=== PATIENT | female | born 1950 | race Hispanic/Latino ===

== ENCOUNTER 2020-12-30 18:45 | Observation (INO) | payer OTHER ==
[~2020-12-30] VITALS: Ht 162.6 cm; Wt 99.8 kg
[2020-12-30 18:52] VITALS: BP 153/76
[2020-12-30] MEDS ORDERED: 0.9%NACL 1000ML 1,000 ML IV ONE ×2 (19:30→21:00)
[2020-12-30 19:42] LABS: ABG OXYGEN SATURATION 70.6 % (95.0-99.0); BASE EXCESS,VENOUS BLOOD GAS -0.9 (-2.0-3.0); HCO3,VENOUS BLOOD GAS 25.4 (21.0-28.0); PCO2,VENOUS BLOOD GAS 48 (32-45); PH,VENOUS BLOOD GAS 7.343 (7.350-7.450)
[2020-12-30 19:46] LABS: BASOPHILS % (AUTO) 0.5 % (0.0-5.0); EOSINOPHILS % (AUTO) 2.4 % (0.0-8.0); HEMATOCRIT 33.2 % (36-48); LYMPHOCYTES % (AUTO) 15.6 % (21.0-51.0); MEAN CORPUSCULAR HEMOGLOBIN 29.7 pg (27.0-33.0); MEAN CORPUSCULAR HGB CONC 33.1 g/dL (32.0-36.0); MEAN CORPUSCULAR VOLUME 89.7 fL (79-99); MONOCYTES % (AUTO) 7.6 % (3.0-13.0); NEUTROPHILS % (AUTO) 73.5 % (40.0-77.0); PLATELET COUNT (AUTO) 199 K/uL (130-400); RED CELL DISTRIBUTION WIDTH 12.2 % (11.0-15.5); WHITE BLOOD COUNT (AUTO) 8.2 K/uL (4.8-10.8)
[2020-12-30 19:57] VITALS: BP 153/71
[2020-12-30 20:11] LABS: ALANINE AMINOTRANSFERASE 14 U/L (12-78); ALBUMIN 3.2 g/dL (3.5-5.0); ALCOHOL, BLOOD < 3 mg/dL (0-10); ASPARTATE AMINOTRANSFERASE 10 U/L (10-37); BILIRUBIN,TOTAL 0.4 mg/dL (0.2-1.0); CARBON DIOXIDE 25 mmol/L (21-32); CHLORIDE 99 mmol/L (101-111); CREATINE KINASE, TOTAL 73 U/L (21-232); CREATININE 2.1 mg/dL (0.5-1.5); GLOMERULAR FILTR. RATE CALC 25 mL/min (>60); POTASSIUM 4.3 mmol/L (3.5-5.1); SODIUM SERUM 134 mmol/L (136-145); TOTAL PROTEIN, SERUM 7.4 g/dL (6.0-8.3); UREA NITROGEN, BLOOD 34 mg/dL (7-18)
[2020-12-30 20:13] LABS: GLUCOSE,RANDOM 410 mg/dL (70-105)
[2020-12-30] MEDS ORDERED: INSULIN HUMULIN R 100 UNIT/ML 3ML SQ ONE (21:30)
[2020-12-30 21:40] VITALS: BP 158/73
[2020-12-30] MEDS ORDERED: ASPIRIN 325MG TAB PO STA (22:59)
[2020-12-30] MEDS ORDERED: ZOLPIDEM TARTRATE 5 MG TAB PO PRN (23:00)
[2020-12-30] MEDS ORDERED: GUAIFENESIN-DM 200/20 MG 10 ML PO PRN (23:00)
[2020-12-30] MEDS ORDERED: BENZONATATE 100 MG CAPSULE PO PRN (23:00)
[2020-12-30] MEDS ORDERED: MORPHINE 2 MG SYG IV PRN (23:00)
[2020-12-30] MEDS ORDERED: GLUCAGON 1MG KIT 1 MG ML IM PRN (23:00)
[2020-12-30] MEDS ORDERED: MAG/ALUM/SIMETH 30 ML UDCUP PO PRN (23:00)
[2020-12-30] MEDS ORDERED: DEXTROSE 50%-WATER 50 ML DISP.SYRIN IV PRN (23:00)
[2020-12-30] MEDS ORDERED: ONDANSETRON 4MG INJ IV PRN (23:00)
[2020-12-30] MEDS ORDERED: NITROGLYCERIN 0.4 MG SL TAB SL PRN (23:00)
[2020-12-30] MEDS ORDERED: LACTULOSE 20 GM/30 ML UDCUP PO PRN (23:00)
[2020-12-30] MEDS ORDERED: ACETAMINOPHEN 325 MG TAB PO PRN ×2 (23:00)
[2020-12-30 23:21] VITALS: BP 166/91
[2020-12-30] MEDS: 0.9%NACL 1000ML 1,000 ML IV SCH (23:27)
[2020-12-31 01:41] VITALS: BP 156/91
[2020-12-31 03:17] VITALS: BP 154/87
[2020-12-31] MEDS ORDERED: LORAZEPAM 2 MG/ML 1 ML VIAL IVP ONE (04:30)
[2020-12-31 04:48] VITALS: BP 155/85
[2020-12-31 05:50] VITALS: BP 118/51
[2020-12-31 06:04] LABS: HEMATOCRIT 33.7 % (36-48); MEAN CORPUSCULAR HEMOGLOBIN 28.9 pg (27.0-33.0); MEAN CORPUSCULAR HGB CONC 31.5 g/dL (32.0-36.0); MEAN CORPUSCULAR VOLUME 91.8 fL (79-99); PLATELET COUNT (AUTO) 181 K/uL (130-400); RED BLOOD CELL COUNT(AUTO) 3.67 MIL/uL (4.00-5.50); RED CELL DISTRIBUTION WIDTH 12.4 % (11.0-15.5); WHITE BLOOD COUNT (AUTO) 6.2 K/uL (4.8-10.8)
[2020-12-31 06:25] LABS: ALBUMIN 3.2 g/dL (3.5-5.0); BILIRUBIN,TOTAL 0.5 mg/dL (0.2-1.0); CREATININE 1.7 mg/dL (0.5-1.5); EOSINOPHILS % (MANUAL) 2 % (1-6); LYMPHOCYTES % (MANUAL) 22 % (22-44); MAN.DIFF COMMENT-IMPRESSION MANUAL DIFFERENTIAL; MONOCYTES % (MANUAL) 10 % (2-9); POTASSIUM 3.7 mmol/L (3.5-5.1); SEGMENTED NEUTROPHILS % 66 % (40-70); TOTAL PROTEIN, SERUM 7.1 g/dL (6.0-8.3)
[2020-12-31 06:26] LABS: B-TYPE NATRIURETIC PEPTIDE 48 pg/mL (0-100); PLATELET MORPHOLOGY COMMENT ADEQUATE
[2020-12-31 06:59] LABS: ABG BASE EXCESS -3.6 mmol/L (-2.0-3.0); ABG HCO3 23.1 mmol/L (21.0-28.0); ABG OXYGEN SATURATION 93.5 % (95.0-99.0); ABG PCO2 48 mmHg (32-45)
[2020-12-31 07:04] VITALS: BP 126/59
[2020-12-31] MEDS ORDERED: INSULIN HUMULIN R 100 UNIT/ML 3ML SQ SCH (07:30)
[2020-12-31 08:06] VITALS: BP 123/59
[2020-12-31] MEDS ORDERED: ENOXAPARIN SODIUM 40 MG/0.4 ML SYRINGE SQ SCH (09:00)
[2020-12-31] MEDS: 0.9%NACL 1000ML 1,000 ML IV SCH (09:00)
[2020-12-31] MEDS ORDERED: FAMOTIDINE 20MG VIAL IV SCH (09:00)
[2020-12-31] MEDS ORDERED: ASPIRIN 81 MG EC TAB PO SCH (09:00)
== END 2020-12-31 11:32 | disposition home or self-care (01) ==
LOC: EDH 18:45 → EDHIP 22:55
PROVIDERS: ADMIT Internal Medicine Pulmonary Disease; ATTEND Internal Medicine Pulmonary Disease
DX: T67.5XXA Heat exhaustion, unspecified, initial encounter (principal); E86.9 Volume depletion, unspecified; R77.8 Other specified abnormalities of plasma proteins; E11.65 Type 2 diabetes mellitus with hyperglycemia; J45.909 Unspecified asthma, uncomplicated; F03.90 Unspecified dementia, unspecified severity, without behavioral disturbance, psychotic disturbance, mood disturbance, and anxiety; Z79.82 Long term (current) use of aspirin; Z91.14 Patient's other noncompliance with medication regimen; Z91.19 Patient's noncompliance with other medical treatment and regimen; X30.XXXA Exposure to excessive natural heat, initial encounter; Y92.89 Other specified places as the place of occurrence of the external cause; Y93.89 Activity, other specified; Y99.8 Other external cause status
CPT/HCPCS: 36415 ×2; 36600 ×2; 71045; 80053 ×2; 82010; 82550 ×3; 82803 ×2; 82948; 83880 ×2; 84145; 84484 ×3; 85025 ×2; 85378; 93005 ×2; 96361; 96372 ×2; 96374; 96375; 99285; G0378 ×13; J1650; J1815 ×2; J2060; J3490; J7030 ×2

== ENCOUNTER 2021-06-14 16:19 | Emergency (ER) | payer OTHER ==
[~2021-06-14] VITALS: Ht 157.5 cm; Wt 74.8 kg
[2021-06-14 16:21] VITALS: BP 151/81
== END 2021-06-14 18:42 | disposition left against medical advice (07) ==
LOC: EDH 16:19
DX: M25.561 Pain in right knee (principal); Z53.21 Procedure and treatment not carried out due to patient leaving prior to being seen by health care provider

== ENCOUNTER 2021-12-01 17:27 | Emergency (ER) | payer OTHER ==
[~2021-12-01] VITALS: Ht 160 cm; Wt 64.0 kg
[~2021-12-01 17:27] MED LIST: ACET325T51 PO; AMLO-258 PO; ASCO250T22 PO; ATOR20TA65 PO; BUME1TAB7 PO; DONE5TAB5 PO; FERR-72 PO; FOLI0.8T41 PO; GUAI100L37 PO; INSU100V3 IJ; LEVO75CA5 PO; SERT50TA PO; SPIR25TA PO; TRAZ-187 PO
[2021-12-01 18:06] LABS: BASOPHILS % (AUTO) 0.1 % (0.0-5.0); EOSINOPHILS % (AUTO) 6.3 % (0.0-8.0); HEMATOCRIT 29.2 % (36-48); LYMPHOCYTES % (AUTO) 27.4 % (21.0-51.0); MEAN CORPUSCULAR HEMOGLOBIN 30.5 pg (27.0-33.0); MEAN CORPUSCULAR HGB CONC 32.9 g/dL (32.0-36.0); MEAN CORPUSCULAR VOLUME 92.7 fL (79-99); MONOCYTES % (AUTO) 6.7 % (3.0-13.0); NEUTROPHILS % (AUTO) 58.8 % (40.0-77.0); PLATELET COUNT (AUTO) 223 K/uL (130-400); RED BLOOD CELL COUNT(AUTO) 3.15 MIL/uL (4.00-5.50); RED CELL DISTRIBUTION WIDTH 13.8 % (11.0-15.5); WHITE BLOOD COUNT (AUTO) 7.4 K/uL (4.8-10.8)
[2021-12-01 18:17] LABS: CREATININE 1.4 mg/dL (0.5-1.5); POTASSIUM 4.1 mmol/L (3.5-5.1)
[2021-12-01 18:20] LABS: INR 1.01 (0.85-1.15)
[2021-12-01 18:21] LABS: PARTIAL THROMBOPLASTIN TIME 25.7 SEC (26.3-35.5)
[2021-12-01 18:22] LABS: ALBUMIN 2.3 g/dL (3.5-5.0); TOTAL PROTEIN, SERUM 6.3 g/dL (6.0-8.3)
[2021-12-01] MEDS: PANTOPRAZOLE 40 MG/VIAL IVP ONE (18:27)
[2021-12-01 19:39] VITALS: BP 137/57
== END 2021-12-01 20:33 ==
LOC: EDH 17:27
DX: D64.9 Anemia, unspecified (principal); I10 Essential (primary) hypertension; E03.9 Hypothyroidism, unspecified; F03.90 Unspecified dementia, unspecified severity, without behavioral disturbance, psychotic disturbance, mood disturbance, and anxiety; Z88.6 Allergy status to analgesic agent; Z79.899 Other long term (current) drug therapy; Z87.440 Personal history of urinary (tract) infections
CPT/HCPCS: 36415; 80053; 85025; 85610; 85730; 93005